=== PATIENT | female | born 1955 | race Caucasian/White ===

== ENCOUNTER 2017-06-26 10:16 | Observation (INO) | payer MEDICARE ==
[~2017-06-26] VITALS: Ht 81.3 cm; Wt 24.0 kg
[~2017-06-26 10:16] MED LIST: CIPR500T4 PO; DIAZ5 PO; FAMO20 PO; LOSA50TA PO; OXYC5 PO; ZOFR4TAB3 SL
[2017-06-26 10:19] VITALS: BP 167/103; PULSE 105; RESP 16; TEMP 99.7; O2SAT 96
[2017-06-26] MEDS ORDERED: LOSA25TA PO (10:36)
[2017-06-26] MEDS ORDERED: FAMO1TAB73 PO (10:36)
[2017-06-26] MEDS ORDERED: DIAZ10TA PO (10:36)
[2017-06-26] MEDS ORDERED: SODIUM CHLORID 0.9% 500 ML INJ 500 ML IV SCH (11:00)
[2017-06-26] MEDS ORDERED: SODIUM CHLORIDE 0.9% FLUSH 10 ML FLUSH IV FLUSH PRN (11:00)
[2017-06-26] MEDS ORDERED: SOD PHOSPHATE/SOD BIPHOSPHATE (PED) ENEMA 66ML RECTAL ONE (11:15)
[2017-06-26 11:22] LABS: AUTOMATED NEUTROPHIL # 6.1 TH/MM3 (1.8-7.7); BASOPHIL % 0.3 % (0.0-2.0); HEMATOCRIT 44.7 % (35.0-46.0); HEMO FLAGS DIFF FINAL; LYMPH % 25.5 % (9.0-44.0); LYMPHOCYTE # 2.3 TH/MM3 (1.0-4.8); MEAN CELL VOLUME 93.2 FL (80.0-100.0); MEAN CORPUSCULAR HEMOGLOBIN 30.8 PG (27.0-34.0); MEAN CORPUSCULAR HGB CONC 33.1 % (32.0-36.0); MONO % 5.1 % (0.0-8.0); NEUT % 69.1 % (16.0-70.0); PLATELET COUNT 420 TH/MM3 (150-450); RED CELL DISTRIBUTION WIDTH 13.9 % (11.6-17.2); WHITE BLOOD COUNT 8.9 TH/MM3 (4.0-11.0)
[2017-06-26 11:36] LABS: BACTERIA, URINE OCC /hpf; BLOOD, URINE SMALL (NEG); COMMENT (UR) CATH-CULTURE IND; CULTURE IF INDICATED CATH CULTURE IND; GLUCOSE,URINE NEG (NEG); KETONE, URINE 150 mg/dL (NEG); MUCUS URINE FEW /lpf (OCC); NITRITE,URINE NEG (NEG); PH, URINE 5.5 (5.0-8.5); SQUAMOUS EPITHELIAL CELL URINE 1 /hpf (0-5); URINE COLOR YELLOW (YELLW/STRAW)
[2017-06-26 13:19] LABS: ALT (GPT) 16 U/L (10-53); ANION GAP 15 MEQ/L (5-15); AST (GOT) 15 U/L (15-37); BLOOD UREA NITROGEN 22 MG/DL (7-18); CHLORIDE 106 MEQ/L (98-107); GLOMERULAR FILTRATION RATE 106 ML/MIN (>89); POTASSIUM 4.1 MEQ/L (3.5-5.1); SODIUM (NA) 142 MEQ/L (136-145)
[2017-06-26 13:24] LABS: ALKALINE PHOSPHATASE 94 U/L (45-117); TOTAL BILIRUBIN ADULT 0.5 MG/DL (0.2-1.0)
--- NOTE | 2017-06-26 14:41 | PD ---
HPI Chief Complaint: Complaint Time Seen by Provider: 10:34 Travel History International Travel<30 days: No Contact w/Intl Traveler<30days: No Traveled to known affect area: No History of Present Illness HPI This is a 61-year-old female with a history of osteogenesis imperfecta presents today with complaints of abdominal pain with an ability to have bowel movement. Patient also thinks she may have a urinary tract infection. The patient has had bouts of constipation in the past. She's had multiple enemas and has had bowel irrigation in the past. Patient denies any fevers, chills. She denies any vomiting or diarrhea. She states that it's been 3 or 4 days since her last bowel movement. There is no other complaints time my examination. PFSH Past Medical History Arthritis: Yes Anxiety: Yes Depression: Yes Cancer: Yes (skin) Developmental Delay: Yes Diminished Hearing: No Gastrointestinal Disorders: Yes (rectal prolapse) GERD: Yes Hiatal Hernia: Yes Hypertension: Yes Insomnia: Yes ?: Unknown : 1 Past Surgical History Abdominal Surgery: Yes (numerous hernia surgerys) Appendectomy: Yes Hysterectomy: Yes Tonsillectomy: Yes Social History Alcohol Use: No Tobacco Use: No Substance Use: No Allergies-Medications (Allergen,Severity, Reaction): Coded Allergies: amino acids (Unverified Allergy, Severe, Respiratory Failure, 06/26/17) amino acids 8 % (Unverified Allergy, Severe, Respiratory Failure, 06/26/17) amino acids combination no.3 (Unverified Allergy, Severe, Respiratory Failure, 06/26/17) diatrizoate meglumine (Unverified Allergy, Severe, Respiratory Failure, ) dicyclomine (Unverified Allergy, Severe, Tingling, 06/26/17) gadobenic acid (Unverified Allergy, Severe, Respiratory Failure, 06/26/17) gadodiamide (Unverified Allergy, Severe, Respiratory Failure, 06/26/17) gadoteridol (Unverified Allergy, Severe, Respiratory Failure, 06/26/17) iodixanol (Unverified Allergy, Severe, Respiratory Failure, 06/26/17) iohexol (Unverified Allergy, Severe, Respiratory Failure, 06/26/17) latex (Unverified Allergy, Severe, Hives, 06/26/17) meperidine (Unverified Allergy, Severe, Respiratory Failure, 06/26/17) metoclopramide (Unverified Allergy, Severe, Twitching, 06/26/17) pentazocine (Unverified Allergy, Severe, Fever, 06/26/17) phenobarbital (Unverified Allergy, Severe, Nausea/Vomiting, 06/26/17) Uncoded Allergies: penicillin vk (Allergy, Severe, Nausea/Vomiting, 01/25/16) Reported Meds & Prescriptions Reported Meds & Active Scripts Active Reported Pepcid (Famotidine) 40 Mg Tab 40 Mg PO HS Diazepam 10 Mg Tab 10 Mg PO TID PRN Losartan (Losartan Potassium) 25 Mg Tab 12.5 Mg PO DAILY Review of Systems Except as stated in HPI: all other systems reviewed are Neg General / Constitutional: No: Fever, Chills HENT: No: Headaches, Lightheadedness Cardiovascular: No: Chest Pain or Discomfort, Palpitations Respiratory: No: Cough, Shortness of Breath Gastrointestinal: Positive: Abdominal Pain, Constipation, No: Nausea, Vomiting Genitourinary: Positive: Other (patient's OR so), No: Dysuria Musculoskeletal: No: Weakness, Pain Neurologic: No: Weakness, Dizziness, Headache Physical Exam Narrative GENERAL: This is a 61-year-old female with findings consistent with osteogenesis imperfecta in no acute distress. SKIN: Focused skin assessment warm/dry. HEAD: Normocephalic/atraumatic. EYES: Blue sclera consistent with her condition. No injection. NECK: Supple, trachea midline. CARDIOVASCULAR: Regular rate and rhythm without murmurs, gallops, or rubs. RESPIRATORY: Breath sounds equal bilaterally. No accessory muscle use. GASTROINTESTINAL: Abdomen soft, nondistended. She has suprapubic tenderness with no rebound or guarding. MUSCULOSKELETAL: Extremities are deformed consistent with her osteogenesis imperfecta history. No acute deformity noted. BACK: Nontender. History of spina bifida. RECTAL EXAM: No masses or tenderness, stool is brown and hard. NEUROLOGICAL: Awake and alert. Cranial nerves II through XII intact. Motor grossly within normal limits. Five out of 5 muscle strength in all muscle groups. Normal speech. Data Data Last Documented VS Vital Signs Date Time Temp Pulse Resp B/P (MAP) Pulse Ox O2 Delivery O2 Flow Rate FiO2 06/26/17 10:19 99.7 105 16 167/103 (124) 96 Orders Orders Complete Blood Count With Diff (06/26/17 10:51) Comprehensive Metabolic Panel (06/26/17 10:51) Lactic Acid (06/26/17 10:51) Urinalysis - C+S If Indicated (06/26/17 10:51) Iv Access Insert/Monitor (06/26/17 10:51) Ecg Monitoring (06/26/17 10:51) Oximetry (06/26/17 10:51) Sodium Chloride 0.9% Flush (Ns Flush) (06/26/17 11:00) Sodium Chlorid 0.9% 500 Ml Inj (Ns 500 M (06/26/17 11:00) Fleets Enema (Pediatric) (Fleets Enema ( (06/26/17 11:15) Urine Culture (06/26/17 10:45) Place In Observation (06/26/17 ) Diet Regular Basic (06/26/17 Dinner) Activity Bed Rest (06/26/17 14:59) Vital Signs (Adult) WISAM.Q4H (06/26/17 14:59) Sodium Chlor 0.9% 1000 Ml Inj (Ns 1000 M (06/26/17 15:15) Admit Order (Ed Use Only) (06/26/17 15:05) Labs Laboratory Tests Test 06/26/17 10:45 06/26/17 11:00 06/26/17 12:55 White Blood Count 8.9 TH/MM3 Red Blood Count 4.80 MIL/MM3 Hemoglobin 14.8 GM/DL Hematocrit 44.7 % Mean Corpuscular Volume 93.2 FL Mean Corpuscular Hemoglobin 30.8 PG Mean Corpuscular Hemoglobin Concent 33.1 % Red Cell Distribution Width 13.9 % Platelet Count 420 TH/MM3 Mean Platelet Volume 8.4 FL Neutrophils (%) (Auto) 69.1 % Lymphocytes (%) (Auto) 25.5 % Monocytes (%) (Auto) 5.1 % Eosinophils (%) (Auto) 0.0 % Basophils (%) (Auto) 0.3 % Neutrophils # (Auto) 6.1 TH/MM3 Lymphocytes # (Auto) 2.3 TH/MM3 Monocytes # (Auto) 0.5 TH/MM3 Eosinophils # (Auto) 0.0 TH/MM3 Basophils # (Auto) 0.0 TH/MM3 CBC Comment DIFF FINAL Differential Comment Urine Color YELLOW Urine Turbidity CLEAR Urine pH 5.5 Urine Specific [place] 1.025 Urine Protein 100 mg/dL Urine Glucose (UA) NEG mg/dL Urine Ketones 150 mg/dL Urine Occult Blood SMALL Urine Nitrite NEG Urine Bilirubin NEG Urine Urobilinogen 2.0 MG/DL Urine Leukocyte Esterase SMALL Urine RBC 1 /hpf Urine WBC 5 /hpf Urine Squamous Epithelial Cells 1 /hpf Urine Bacteria OCC /hpf Urine Mucus FEW /lpf Microscopic Urinalysis Comment CATH-CULTURE IND Lactic Acid Level 1.3 mmol/L Blood Urea Nitrogen 22 MG/DL Creatinine 0.58 MG/DL Random Glucose 71 MG/DL Total Protein 7.3 GM/DL Albumin 4.4 GM/DL Calcium Level 9.5 MG/DL Alkaline Phosphatase 94 U/L Aspartate Amino Transf (AST/SGOT) 15 U/L Alanine Aminotransferase (ALT/SGPT) 16 U/L Total Bilirubin 0.5 MG/DL Sodium Level 142 MEQ/L Potassium Level 4.1 MEQ/L Chloride Level 106 MEQ/L Carbon Dioxide Level 21.0 MEQ/L Anion Gap 15 MEQ/L Estimat Glomerular Filtration Rate 106 ML/MIN MDM Medical Decision Making Medical Screen Exam Complete: Yes Emergency Medical Condition: Yes Differential Diagnosis Obstipation versus constipation versus UTI versus dehydration Narrative Course This is a 61-year-old female with a history of osteogenesis imperfecta, presents here with constipation. The patient has severe constipation. She's received a fleets enema and a soapsuds enema with minimal results. She also has a UTI. She'll be admitted for observation until she clears her stool. She' ll be given antibiotics for her UTI. She currently has an IV of 42 cc per hour. Procedures Procedure Narrative Patient had a pediatric Fleet Enema introduced into her rectal area. There was no stool output. On digital disimpaction, there was some stool removed however this stool was still felt at the tip of the finger. Patient had a soapsuds enema introduced with roughly 100 cc of soapsuds. There were no bowel movements obtained. Diagnosis Primary Impression: Obstipation Additional Impressions: UTI (urinary tract infection) Osteogenesis imperfecta Admitting Information Admitting Physician Requests: Observation Luis Angel Vincent MD Jun 26, 2017 14:41
[2017-06-26 16:07] VITALS: BP 161/106; PULSE 100; RESP 20; O2SAT 97
[2017-06-26 16:33] VITALS: BP_SYST 138; BP_SYST 142; BP_DIAS 82; BP_DIAS 86
[2017-06-26] MEDS ORDERED: SOD PHOSPHATE/SOD BIPHOSPHATE (ADULT) ENEMA 133ML RECTAL PRN (17:00)
--- NOTE | 2017-06-26 17:13 | HHI.PR ---
Objective Objective Results - Vital Signs Date Time Temp Pulse Resp B/P (MAP) Pulse Ox O2 Delivery O2 Flow Rate FiO2 06/26/17 16:45 06/26/17 16:33 138/82 (100) 142/86 (104) 06/26/17 16:07 100 20 161/106 (124) 97 Room Air 06/26/17 10:19 99.7 105 16 167/103 (124) 96 Result Diagram: 06/26/17 1045 06/26/17 1255 A/P Assessment and Plan [id number] UTI hx osteogenesis imperfecta dysuria JANELLE, dehydration HTN, uncontrolled, Sarah Villanueva Jun 26, 2017 17:13
[2017-06-26] MEDS ORDERED: ROZE8TAB8 PO (17:27)
[2017-06-26] MEDS ORDERED: ZOFR4TAB PO (17:29)
[2017-06-26 17:32] VITALS: BP 155/84; PULSE 85; RESP 19; TEMP 98.3; O2SAT 100
[2017-06-26] MEDS: SODIUM CHLOR 0.9% 1000 ML INJ 1,000 ML IV SCH (19:52)
[2017-06-26 21:40] VITALS: BP 134/85; PULSE 70; RESP 18; TEMP 98.2; O2SAT 98
[2017-06-26] MEDS: SULFAMETHOXAZOLE-TRIMETHOPRIM DS 800-160 MG TAB PO SCH (21:57)
[2017-06-27 00:16] VITALS: BP 138/85; PULSE 74; RESP 18; TEMP 98.5; O2SAT 98
[2017-06-27] MEDS: SODIUM CHLOR 0.9% 1000 ML INJ 1,000 ML IV SCH (03:10)
[2017-06-27 03:19] VITALS: BP 135/65; PULSE 78; RESP 18; TEMP 97.9; O2SAT 98
--- NOTE | 2017-06-27 08:28 | MH ---
cc: ROSA PARISI MD DATE OF ADMISSION: 06/26/2017 DATE OF 1955 CHIEF COMPLAINT Constipation, dysuria, urinary retention. TRAVEL IN THE LAST 30 DAYS None. HISTORY OF PRESENT ILLNESS This is a pleasant 61-year-old little female with a history of osteogenesis imperfecta who comes in today with a possible urinary tract infection. She notes some dysuria and some urinary retention. She also states that she has frequent bouts of constipation and has not gone to the bathroom in 3 or 4days. She states that this is too long of a period of time for her. She came in for further evaluation. The patient denies any fever, chills, nausea or vomiting. No headache. No chest pain. No shortness of breath. No recent fevers. She is accompanied by her son who is her chief digital imaging technician. MEDICAL HISTORY 1. Anxiety. 2. Arthritis. 3. Depression. 4. Skin cancer. 5. Rectal prolapse. 6. Gastroesophageal reflux disease. 7. Hiatal hernia. 8. Hypertension. 9. Insomnia. PAST SURGICAL HISTORY 1. Numerous hernia repairs. 2. Appendectomy. 3. Hysterectomy. 4. Tonsillectomy. 5. Constipation. 6. UTIs. SOCIAL HISTORY Denies any alcohol or tobacco use. Does occasionally smoke some marijuana one to three times a week to help with her appetite. She lives currently with her son Brigido in her own home. ALLERGIES AMINO ACIDS. DIATRIZOATE. DICYCLOMINE GADODIAMIDE. GADOTERIDOL. IODIXANOL. IOHEXOL. LATEX. MEPERIDINE. REGLAN. TALWIN. PHENOBARBITAL PENICILLIN. MEDICATIONS 1. Pepcid. 2. Valium. 3. Losartan. REVIEW OF SYSTEMS A 12-point review was obtained. Positives noted in HPI which chiefly is around her urinary retention, dysuria, severe constipation, probably fecal impaction. Other systems negative or unremarkable. PHYSICAL EXAMINATION VITAL SIGNS: Temperature is 99.7, pulse is 100, blood pressure 167/103 and now 142/86 and 138/82, respiratory rate between 16 and 20, O2 sat 97, currently on room air. GENERAL: A 61-year-old female with osteogenesis imperfecta. Alert, oriented, conversational. SKIN: Pale pink, warm and dry. Turgor is thin. HEENT: Normocephalic, atraumatic. EYES: PERRLA. Blue sclerae. Mucous membranes are slightly dry. Tongue has mild white papilla noted. Throat is clear. NECK: Supple, short. CARDIOVASCULAR: S1, S2. No murmurs, rubs or gallops audible. She has no edema. Pulses are intact. LUNGS: Lung sounds are essentially clear anteriorly and posteriorly. GI: Abdomen soft, nontender. Low mild tenderness noted around the bladder area and suprapubic area. MUSCULOSKELETAL: Osteogenesis imperfecta history. EXTREMITIES: Deformed and turned with arthritis. History of spina bifida. No CVA tenderness on her back. NEUROLOGICALLY: She is alert and oriented, a pretty good historian. Speech is clear and normal. PSYCHIATRIC: Mood and affect are appropriate with some mild to moderate anxiety. DIAGNOSTIC DATA Urine is yellow, clear; pH is 5.5, specific gravity 1.025, protein is 100, ketones are 150, small amount of blood, small amount of leukocyte esterase. Culture is ordered and pending. Chemistry 142, potassium 4.1, chloride 106, carbon dioxide 21, BUN 22, creatinine 0.58, random glucose 71, ALT 16, AST 15, alkaline phos 94. IMAGING STUDIES Abdominal pelvis CT report is pending. ASSESSMENT AND PLAN 1. Severe constipation with small impaction. 2. UTI probable. 3. Dysuria with urinary retention. 4. Acute kidney injury with mild dehydration. 5. History of osteogenesis imperfecta and previous spina bifida. Our plan is to - 1. ECG monitor with telemetry. 2. We will monitor her labs, keep her on bedrest for now, regular basic diet but currently is going to need full liquids for tonight. 3. Straight catheter. 4. We have ordered lactulose daily. 5. A pediatric Fleet's enema as needed. 6. We will straight cath as needed but the patient can have Cruz catheter 8-[place]. 7. She is currently in observation in the emergency room. 8. The patient had a regular pediatric enema and had soapsuds enemas in the past. She stated to me that she had two enemas with a large amount of stool expelled in the emergency room. The stool is now soft but still needs to monitor her bowel regimen and monitor probable more BMs to be had. 9. We started the patient on Bactrim DS for her UTI. 10. We will continue to monitor her needs and her labs as needed. Dictated by: JOHN Thomas MD CRYS Farah/KASSANDRA /4:59 PM /8:24 AM
[2017-06-27 08:29] VITALS: BP 164/92; PULSE 79; RESP 20; TEMP 98.6; O2SAT 95
[2017-06-27] MEDS ORDERED: DIAZEPAM 10 MG TAB PO PRN (08:30)
[2017-06-27] MEDS ORDERED: PILL SPLITTER OTHER PRN (08:45)
[2017-06-27] MEDS ORDERED: LOSARTAN 25 MG TAB PO SCH (09:00)
[2017-06-27] MEDS ORDERED: LACTULOSE SYRUP 20 GM/30 ML CUP PO SCH (09:00)
[2017-06-27] MEDS: SULFAMETHOXAZOLE-TRIMETHOPRIM DS 800-160 MG TAB PO SCH (09:04)
--- NOTE | 2017-06-27 10:03 | HHI.PR ---
Subjective Subjective Remarks no cp no sob had multiple bms anxious to go home doesn't want [facility] caregiver at [facility] Review of Systems Constitutional Constitutional Remarks 12 point ros completed, negative except as noted above Vitals/Results Intake & Output 06/27/17 06/27/17 06/28/17 14:59 22:59 06:59 Intake Total 500 ml Balance 500 ml Intake IV Total 500 ml Vital Signs Vital Signs Date Time Temp Pulse Resp B/P (MAP) Pulse Ox O2 Delivery O2 Flow Rate FiO2 06/27/17 08:29 98.6 79 20 164/92 (116) 95 06/27/17 03:19 97.9 78 18 135/65 (88) 98 06/27/17 00:16 98.5 74 18 138/85 (102) 98 06/26/17 21:40 98.2 70 18 134/85 (101) 98 06/26/17 17:32 98.3 85 19 155/84 (107) 100 06/26/17 16:45 06/26/17 16:33 138/82 (100) 142/86 (104) 06/26/17 16:07 100 20 161/106 (124) 97 Room Air 06/26/17 10:19 99.7 105 16 167/103 (124) 96 CBC/BMP: 06/26/17 1045 06/26/17 1255 Lab Results Laboratory Tests Test 06/26/17 10:45 06/26/17 11:00 06/26/17 12:55 White Blood Count 8.9 TH/MM3 Red Blood Count 4.80 MIL/MM3 Hemoglobin 14.8 GM/DL Hematocrit 44.7 % Mean Corpuscular Volume 93.2 FL Mean Corpuscular Hemoglobin 30.8 PG Mean Corpuscular Hemoglobin Concent 33.1 % Red Cell Distribution Width 13.9 % Platelet Count 420 TH/MM3 Mean Platelet Volume 8.4 FL Neutrophils (%) (Auto) 69.1 % Lymphocytes (%) (Auto) 25.5 % Monocytes (%) (Auto) 5.1 % Eosinophils (%) (Auto) 0.0 % Basophils (%) (Auto) 0.3 % Neutrophils # (Auto) 6.1 TH/MM3 Lymphocytes # (Auto) 2.3 TH/MM3 Monocytes # (Auto) 0.5 TH/MM3 Eosinophils # (Auto) 0.0 TH/MM3 Basophils # (Auto) 0.0 TH/MM3 CBC Comment DIFF FINAL Differential Comment Urine Color YELLOW Urine Turbidity CLEAR Urine pH 5.5 Urine Specific [place] 1.025 Urine Protein 100 mg/dL Urine Glucose (UA) NEG mg/dL Urine Ketones 150 mg/dL Urine Occult Blood SMALL Urine Nitrite NEG Urine Bilirubin NEG Urine Urobilinogen 2.0 MG/DL Urine Leukocyte Esterase SMALL Urine RBC 1 /hpf Urine WBC 5 /hpf Urine Squamous Epithelial Cells 1 /hpf Urine Bacteria OCC /hpf Urine Mucus FEW /lpf Microscopic Urinalysis Comment CATH-CULTURE IND Lactic Acid Level 1.3 mmol/L Blood Urea Nitrogen 22 MG/DL Creatinine 0.58 MG/DL Random Glucose 71 MG/DL Total Protein 7.3 GM/DL Albumin 4.4 GM/DL Calcium Level 9.5 MG/DL Alkaline Phosphatase 94 U/L Aspartate Amino Transf (AST/SGOT) 15 U/L Alanine Aminotransferase (ALT/SGPT) 16 U/L Total Bilirubin 0.5 MG/DL Sodium Level 142 MEQ/L Potassium Level 4.1 MEQ/L Chloride Level 106 MEQ/L Carbon Dioxide Level 21.0 MEQ/L Anion Gap 15 MEQ/L Estimat Glomerular Filtration Rate 106 ML/MIN Microbiology Microbiology 06/26/17 Urine Culture, Received Pending Physical Exam General General Appearance: Well Developed, Well Nourished, Comfortable Eyes Eye Exam: Pupils Equal, Pupils Reactive Ears & Nose Ears & Nose Exam: Nasal Mucosa [place] Throat Throat Exam: Oral Mucosa [place] & Moist Neck Neck Exam: Neck Supple, Trachea Midline Pulmonary Resp Exam: No Distress Cardiology CV Exam: Regular Gastrointestinal/Abdomen GI Exam: Soft, Non-Tender, Bowel Sounds Present, Non-Distended Musculoskeletal MS Remarks small stature bone deformities from OI Integumentary Skin Exam: Warm, Dry Extremeties Extremities Exam: No Edema, Pedal Pulses Palpable Neurologic Neuro Exam: Alert, Awake, Oriented, Speech Clear, Lacing Cutter Equal Psychiatric Psych Exam: Appropriate Responses VTE Prophylaxis VTE Remarks Pepcid Assessment/Plan Problem List: (1) Obstipation ICD Codes: K59.00 - Constipation, unspecified Status: Acute (2) Osteogenesis imperfecta ICD Codes: Q78.0 - Osteogenesis imperfecta Status: Acute (3) UTI (urinary tract infection) ICD Codes: N39.0 - Urinary tract infection, site not specified Status: Acute Assessment/Plan had BMs, no abd pain tolerating diet continue Bactrim UC pending Declined [facility] discharge today F/U PCP D/W RN D/W pt and SO D/W Dr. Trimble this patient was seen by myself and Dr. Trimble, this note is written on his behalf Lauren Oconnor Jun 27, 2017 10:03
[2017-06-27] MEDS ORDERED: SULF1TAB23 PO (10:09)
--- NOTE | 2017-06-27 10:10 | HHI.DCPOC ---
Discharge Care Plan Diagnosis: (1) Obstipation (2) Osteogenesis imperfecta (3) UTI (urinary tract infection) Your Health Problems Are: Appetite Changes Irregular Bowel Function Urinary Difficulties Goals to Promote Your Health * To prevent worsening of your condition and complications * To maintain your health at the optimal level Directions to Meet Your Goals Take your medications as prescribed Follow your dietary instruction Follow activity as directed Keep your appointments as scheduled Take your immunizations and boosters as scheduled If your symptoms worsen call your PCP, if no PCP go to Urgent Care Center or Emergency Room Smoking is Dangerous to Your Health. Avoid second hand smoke Call the 24-hour hour crisis hotline for domestic abuse at Lauren Oconnor [place] Jun 27, 2017 10:10
[2017-06-27] MEDS ORDERED: LACT10SO PO (12:22)
[2017-06-27] MEDS ORDERED: BACT400T PO (12:22)
[2017-06-27] MEDS ORDERED: RAMELTEON 8 MG PO SCH (21:00)
[2017-06-27] MEDS ORDERED: FAMOTIDINE 20 MG TAB PO SCH (21:00)
== END 2017-06-27 12:53 | disposition home or self-care (01) ==
LOC: NEPE 10:16 → NEDA 15:09 → NEPHCDU 17:01
PROVIDERS: ADMIT Specialist; ATTEND Specialist
DX: K59.00 Constipation, unspecified (principal); Q78.0 Osteogenesis imperfecta; N39.0 Urinary tract infection, site not specified; N17.9 Acute kidney failure, unspecified; E86.0 Dehydration; I10 Essential (primary) hypertension; K21.9 Gastro-esophageal reflux disease without esophagitis; Z85.828 Personal history of other malignant neoplasm of skin
CPT/HCPCS: 80053; 81001; 83605; 85025; 87086; 96360; 96361; 99285; G0378; J7030; J7040